=== PATIENT | male | born 1995 ===

== ENCOUNTER 2018-03-23 20:49 | Emergency (ER) | payer BC ==
[2018-03-23 20:57] VITALS: BP 123/75
--- NOTE | 2018-03-23 21:17 | UC ---
Upper Extremity HPI - HPI Summary HPI Summary: A 22 y/o male presents to [facility] c/o resolved left shoulder dislocation. According to the patient, he fell on a rock while playing soccer at 1930. He stated that he tried pushing it back in place, however, it went back in on his own soon afterwards. Patient has no other known issues. Patient took 2 oral pills of Ibuprofen and applied ice to the area. PMHx of asthma. No current medications. No FHx of hypermobility. SHx of no smoking or ETOH. - History of Current Complaint Chief Complaint: UCUpperExtremity Stated Complaint: SHOULDER INJURY Time Seen by Provider: 03/23/18 21:01 Hx Obtained From: Patient Onset/Duration: Sudden Onset, Resolved Severity Initially: Mild Severity Currently: None Pain Intensity: 3 Pain Scale Used: 0-10 Numeric Location Of Pain: Is Discrete @ - Left shoulder Aggravating Factor(s): Nothing Alleviating Factor(s): Nothing Associated Signs And Symptoms: Positive: Negative - Allergies/Home Medications Allergies/Adverse Reactions: Allergies Allergy/AdvReac Type Severity Reaction Status Date / Time Penicillins Allergy Unknown Verified 03/23/18 20:58 Reaction Details Home Medications: Home Medications Budesonide/Formote 80/4.5(NF) [Symbicort 80/4.5 (NF)] 1 puff INH BID 03/23/18 [ History Confirmed 03/23/18] Ibuprofen TAB* [Motrin TAB* 400 MG] 1 tab PO ONCE 03/23/18 [History Confirmed ] PMH/Surg Hx/FS Hx/Imm Hx Respiratory History: Asthma - Surgical History Surgical History: None - Family History Known Family History: Positive: Other - Negative: Hypermobility - Social History Alcohol Use: None Substance Use Type: None Smoking Status (MU): Never Smoked Tobacco Review of Systems Constitutional: Negative Skin: Negative Eyes: Negative ENT: Negative Respiratory: Negative Cardiovascular: Negative Gastrointestinal: Negative Genitourinary: Negative Motor: Negative Neurovascular: Negative Musculoskeletal: Other: - POSITIVE: Resolved left shoulder dislocation Neurological: Negative Psychological: Negative Is Patient Immunocompromised?: No All Other Systems Reviewed And Are Negative: Yes Physical Exam - Summary Physical Exam Summary: Appearance: Well appearing, no pain distress Skin: warm, dry, reflects adequate perfusion Head/face: normal Eyes: EOMI, MELINA ENT: normal Neck: supple, non-tender Respiratory: CTA, breath sounds present Cardiovascular: RRR, pulses symmetrical Abdomen: non-tender, soft Bowel Sounds: present Musculoskeletal: normal, strength/ROM intact. Left shoulder reduction that spontaneously reduced. Normal strength, sensation and FROM intact. Neuro: normal, sensory motor intact, A&Ox3 Triage Information Reviewed: Yes Vital Signs: Initial Vital Signs Temp 99.0 F 03/23/18 20:54 Pulse 57 03/23/18 20:54 Resp 18 03/23/18 20:54 BP 123/75 03/23/18 20:54 Pulse Ox 99 03/23/18 20:54 Vital Signs Reviewed: Yes Diagnostics - Radiology No standard instances Radiology Interpretation Completed By: ED Physician - Negative. Pending official report. Upper Extremity Course/Dx - Course Course Of Treatment: Patient describes left shoulder dislocation with deformity that was able to self reduce with help of his friends at time of injury. He is now neurovascularly intact with full range of motion. X-rays are negative. Placed in a sling. Discharged in good condition. - Differential Dx/Diagnosis Provider Diagnoses: LEFT SHOULDER DISLOCATION WITH SPONTANEOUS REDUCTION Discharge - Sign-Out/Discharge Documenting (check all that apply): Patient Departure - DISCHARGE All imaging exams completed and their final reports reviewed: No - CXR - Discharge Plan Condition: Improved Disposition: HOME Patient Education Materials: Shoulder Dislocation Exercises (GEN) Referrals: Melvin Jiang [Primary Care Provider] - Additional Instructions: Ice, sling for first week. I'll up with [facility]. You may also follow-up with Amos Guerrero at [facility] Orthopedics across the road from [place]. Tylenol, ibuprofen as needed for discomfort. - Billing Disposition and Condition Condition: IMPROVED Disposition: Home - Attestation Statements Document Initiated by Scribe: Yes Documenting Scribe: Gulshan Maguire Provider For Whom Corineibe is Documenting (Include Credential): Tramaine Perez MD Scribe Attestation: Gulshan Angeles, scribed for Tramaine Perez MD on 03/23/18 at 2131. Scribe Documentation Reviewed: Yes Provider Attestation: The documentation as recorded by the scribGulshan reyez accurately reflects the service I personally performed and the decisions made by me, Tramaine Perez MD
--- NOTE | 2018-03-24 08:12 | RAD ---
Indication: Left shoulder pain. 4 views of left shoulder demonstrates no fracture or dislocation. No other bone or joint abnormality is identified. IMPRESSION: No fracture of the left shoulder is noted. R0
--- NOTE | 2018-03-24 22:22 | UC ---
- Progress Note Progress Note: XR radiologist read: IMPRESSION: No fracture of the left shoulder is noted. No change in plan of care Discharge - Sign-Out/Discharge Documenting (check all that apply): Post-Discharge Follow Up All imaging exams completed and their final reports reviewed: Yes - Discharge Plan Condition: Improved Disposition: HOME Patient Education Materials: Shoulder Dislocation Exercises (GEN) Referrals: Melvin Jiang [Primary Care Provider] - Additional Instructions: Ice, sling for first week. I'll up with [facility]. You may also follow-up with Amos Guerrero at [facility] Orthopedics across the road from [place]. Tylenol, ibuprofen as needed for discomfort. - Billing Disposition and Condition Condition: IMPROVED Disposition: Home
== END 2018-03-23 21:25 | disposition home or self-care (01) ==
LOC: UCEAST 20:49
DX: S43.005A Unspecified dislocation of left shoulder joint, initial encounter (principal); W18.00XA Striking against unspecified object with subsequent fall, initial encounter; Y93.66 Activity, soccer; Y92.322 Soccer field as the place of occurrence of the external cause; J45.909 Unspecified asthma, uncomplicated; Z88.0 Allergy status to penicillin
CPT/HCPCS: 99211; G0463